=== PATIENT | male | born 1980 | race Caucasian/White ===

== ENCOUNTER → 2016-10-26 | Outpatient (CLI) | payer OTHER ==
[~2016-10-26] MED LIST: ALLE25CA5 PO; MEDR4PAK3 PO
[2016-10-27 16:24] LABS: MOTILE/EJACULATE 0 x10(6) (>=9.0); MOTILE/mL 0 x10(6) (>=6.0); MOTILITY 0 % (>=40); SEMEN CONTAINER TYPE 50 mL Conical (()); SPERM/ML 0.005 x10(6) (>=15.0); STUDY TYPE Semen (())
== END ==
LOC: CLAB 12:59
PROVIDERS: ATTEND Family Medicine
DX: Z31.41 Encounter for fertility testing (principal)
CPT/HCPCS: 89310

== ENCOUNTER → 2017-01-01 | Outpatient (CLI) | payer OTHER ==
[2017-01-02 11:46] LABS: GRADE 2.5 (>=2.5); MOTILE/EJACULATE 0.003 x10(6) (>=9.0); MOTILITY 8 % (>=40); SEMEN CONTAINER TYPE 50 mL Conical; SPERM/ML 0.006 x10(6) (>=15.0); STUDY TYPE Semen
== END ==
LOC: CLAB 08:30
PROVIDERS: ATTEND Family Medicine
DX: Z31.41 Encounter for fertility testing (principal)
CPT/HCPCS: 89322